=== PATIENT | male | born 2000 | race Two or more races ===

== ENCOUNTER → 2024-11-30 | Outpatient (CLI) | payer OTHER, MEDICAID, SELFPAY ==
--- NOTE | 2024-11-30 14:07 | XR_ITS ---
Examination: PA lateral chest 2 views TECHNIQUE: Upright PA lateral chest 2 views Exam date and time: November 30, 2024 1457 hours Comparison September 07, 2019 INDICATIONS: Shortness of breath beginning one month ago. FINDINGS: Normal heart size No pneumonia or pulmonary edema Old healed fracture left clavicle IMPRESSION: No active disease
== END | disposition home or self-care (01) ==
PROVIDERS: PCP Family Medicine; Referring Provider Family Medicine; Visit Provider Family Medicine
DX: R06.02 Shortness of breath (principal)
CPT/HCPCS: 71046